=== PATIENT | male | born 1965 | race Two or more races ===

== ENCOUNTER 2022-12-05 15:48 | Emergency (ER) | payer OTHER ==
[~2022-12-05] VITALS: Ht 172.7 cm; Wt 91.6 kg
[2022-12-05 15:52] VITALS: BP 150/100
--- NOTE | 2022-12-05 15:59 | NUR ---
BLOOD GLUCOSE 367 , JUST ATE 30MINS AGO
--- NOTE | 2022-12-05 17:09 | NUR ---
MD BRAVO EVALUATING PT
[2022-12-05] MEDS ORDERED: SULF-58 PO (17:12)
[2022-12-05] MEDS ORDERED: IBUP-2213 PO (17:12)
[2022-12-05] MEDS ORDERED: ACET-10509 PO (17:12)
[2022-12-05 17:29] VITALS: BP 149/88
--- NOTE | 2022-12-05 17:29 | NUR ---
Patient discharged with v/s stable. Written and verbal after care instructions FOR CELLULITIS AND WOUND CARE given and explained. Patient alert, oriented and verbalized understanding of instructions. Ambulatory with steady gait. All questions addressed prior to discharge. ID band removed. Patient advised to follow up with PMD. Rx of TYLENOL XTRA STRENGTH, IBUPROFEN AND BACTRIM given. Opportunity to ask questions provided and answered.
== END 2022-12-05 17:29 | disposition home or self-care (01) ==
LOC: MED 15:48
DX: L03.116 Cellulitis of left lower limb (principal); E11.621 Type 2 diabetes mellitus with foot ulcer; I10 Essential (primary) hypertension; Z79.899 Other long term (current) drug therapy; Z79.1 Long term (current) use of non-steroidal anti-inflammatories (NSAID); Z79.2 Long term (current) use of antibiotics
CPT/HCPCS: 82948; 99283

== ENCOUNTER 2024-02-14 19:31 | Emergency (ER) | payer OTHER ==
[~2024-02-14] VITALS: Ht 175.3 cm; Wt 90.7 kg
[~2024-02-14 19:31] MED LIST: ACET-10509 PO; IBUP-2213 PO; SULF-58 PO
[2024-02-14 19:33] VITALS: BP 147/94; PULSE 95; RESP 16; TEMP 97.4; O2SAT 97
[2024-02-14] MEDS: NACL 0.9% 1,000 ML IV ONE (21:10)
[2024-02-14] MEDS: ACETAMINOPHEN EXTRA STRENGTH 500 MG TAB PO ONE (21:11)
[2024-02-14] MEDS ORDERED: CEPH-588 PO (22:10)
== END 2024-02-14 22:22 | disposition home or self-care (01) ==
LOC: MED 19:31
DX: S91.301A Unspecified open wound, right foot, initial encounter (principal); S90.111A Contusion of right great toe without damage to nail, initial encounter; S90.821A Blister (nonthermal), right foot, initial encounter; E11.65 Type 2 diabetes mellitus with hyperglycemia; I10 Essential (primary) hypertension; Z79.899 Other long term (current) drug therapy; X58.XXXA Exposure to other specified factors, initial encounter; Y92.89 Other specified places as the place of occurrence of the external cause; Y93.89 Activity, other specified; Y99.8 Other external cause status
CPT/HCPCS: 73630; 82948; 96360; 99283; J7030